=== PATIENT | female | born 1985 | race Caucasian/White ===

== ENCOUNTER 2022-01-23 18:51 | Emergency (ER) | payer MEDICARE, OTHER ==
[~2022-01-23] VITALS: Ht 165.1 cm; Wt 72.0 kg
[2022-01-23 19:51] LABS: BACTERIA,URINE 0 /HPF (0-FEW); RBC,URINE 0 /HPF (0-2)
[2022-01-23 20:10] LABS: BASO % 1 % (0-3); EOS # 0.1 x10^3/uL (0.0-0.7); EOS % 1 % (0-3); HEMATOCRIT 41.4 % (36.0-47.0); HEMOGLOBIN 14.4 g/dL (12.0-15.5); LYMPH # 2.1 x10^3/uL (1.0-4.8); LYMPH % 27 % (24-48); MEAN CORPUSCULAR HEMOGLOBIN 32 pg (25-35); MEAN CORPUSCULAR HGB CONC 35 g/dL (31-37); MEAN CORPUSCULAR VOLUME 94 fL (79-100); MONO # 0.6 x10^3/uL (0.0-1.1); MONO % 8 % (0-9); NEUT # 5.1 x10^3/uL (1.8-7.7); NEUT % 64 % (31-73); PLATELET COUNT 169 x10^3/uL (140-400); RED BLOOD COUNT 4.43 x10^6/uL (3.50-5.40); RED CELL DISTRIBUTION WIDTH 12.6 % (11.5-14.5)
[2022-01-23 20:24] LABS: CALCIUM 8.6 mg/dL (8.5-10.1); CREATININE 0.9 mg/dL (0.6-1.0); GFR 70.5; POTASSIUM 3.3 mmol/L (3.5-5.1)
[2022-01-23 20:34] LABS: ALBUMIN 3.9 g/dL (3.4-5.0); ALBUMIN/GLOBULIN RATIO 1.2 (1.0-1.7); TOTAL BILIRUBIN 0.3 mg/dL (0.2-1.0); TOTAL PROTEIN 7.2 g/dL (6.4-8.2)
--- NOTE | 2022-01-23 20:56 | PHYS DOC ---
Past Medical History Past Surgical History: No Surgical History (DYANA HOWARD CHEMIST INSTRUMENTATION) General Adult EDM: Chief Complaint: VAGINAL BLEEDING HPI: HPI: Patient is a 36 year old female 4 para 0 with 3 miscarriages presenting to the ED today complaining of vaginal bleeding and abdominal cramping in , symptoms began today. Denies any concerns for STDs. Last menstrual cycle she states was January 15, 2022 (DYANA HOWARD CHEMIST INSTRUMENTATION) Review of Systems: Review of Systems: Constitutional: Denies fever or chills. [] Eyes: Denies change in visual acuity. [] HENT: Denies nasal congestion or sore throat. [] Respiratory: Denies cough or shortness of breath. [] Cardiovascular: Denies chest pain or edema. [] GI: Reports spotting, abdominal pain in , denies nausea, vomiting, bloody stools or diarrhea. [] : Denies dysuria. [] Musculoskeletal: Denies back pain or joint pain. [] Integument: Denies rash. [] Neurologic: Denies headache, focal weakness or sensory changes. [] Psychiatric: Denies depression or anxiety. [] (DYANA HOWARD CHEMIST INSTRUMENTATION) Heart Score: C/O Chest Pain: N/A Risk Factors: Risk Factors: DM, Current or recent (<one month) smoker, HTN, HLP, family history of CAD, obesity. Risk Scores: Score 0 - 3: 2.5% MACE over next 6 weeks - Discharge Home Score 4 - 6: 20.3% MACE over next 6 weeks - Admit for Clinical Observation Score 7 - 10: 72.7% MACE over next 6 weeks - Early Invasive Strategies (DYANA HOWARD CHEMIST INSTRUMENTATION) Allergies: Allergies: Allergies Coded Allergies Type Severity Reaction Last Updated Verified adhesive Allergy Unknown 01/23/22 Yes Uncoded Allergies Type Severity Reaction Last Updated Verified Steroids Allergy Unknown 01/23/22 (DYANA HOWARD CHEMIST INSTRUMENTATION) Physical Exam: PE: Constitutional: Well developed, well nourished, no acute distress, non-toxic appearance. []] Abdomen: Bowel sounds normal, soft, no tenderness, no masses, no pulsatile masses. [] Pelvic exam External pelvic appears normal, cervix visualized, closed, no CMT, no adnexal tenderness, trace amount of brownish discharge in the vaginal vault consistent with spotting Skin: Warm, dry, no erythema, no rash. [] Back: No tenderness, no CVA tenderness. [] Extremities: No tenderness, no cyanosis, no clubbing, ROM intact, no edema. [] Neurologic: Alert and oriented X 3, normal motor function, normal sensory fun ction, no focal deficits noted. [] Psychologic: Affect normal, judgement normal, mood normal. [] (LEEDYANA Bledsoe CHEMIST INSTRUMENTATION) Current Patient Data: Labs: Laboratory Tests Test 01/23/22 19:19 01/23/22 19:21 01/23/22 19:35 Urine Collection Type Unknown Urine Color (Auto) Light yellow Urine Turbidity Clear Urine pH (Auto) 6.0 (<5.0-8.0) Urine Specific [place] 1.028 (1.000-1.030) Urine Protein (Auto) Negative mg/dL (Negative) Urine Glucose (Auto)(UA) Negative mg/dL (Negative) Urine Ketones (Auto) Negative mg/dL (Negative) Urine Blood (Auto) Negative (Negative) Urine Nitrite Negative (Negative) Urine Bilirubin (Auto) Negative (Negative) Urine Urobilinogen (Auto) 3 mg/dL (Normal) Urine Leukocyte Esterase (Auto) Negative (Negative) Urine RBC 0 /HPF (0-2) Urine WBC 1-4 /HPF (0-4) Urine Squamous Epithelial Cells Few /LPF Urine Bacteria 0 /HPF (0-FEW) Urine Mucus Slight /LPF POC Urine HCG, Qualitative Hcg positive (Negative) White Blood Count 8.0 x10^3/uL (4.0-11.0) Red Blood Count 4.43 x10^6/uL (3.50-5.40) Hemoglobin 14.4 g/dL (12.0-15.5) Hematocrit 41.4 % (36.0-47.0) Mean Corpuscular Volume 94 fL (79-100) Mean Corpuscular Hemoglobin 32 pg (25-35) Mean Corpuscular Hemoglobin Concent 35 g/dL (31-37) Red Cell Distribution Width 12.6 % (11.5-14.5) Platelet Count 169 x10^3/uL (140-400) Neutrophils (%) (Auto) 64 % (31-73) Lymphocytes (%) (Auto) 27 % (24-48) Monocytes (%) (Auto) 8 % (0-9) Eosinophils (%) (Auto) 1 % (0-3) Basophils (%) (Auto) 1 % (0-3) Neutrophils # (Auto) 5.1 x10^3/uL (1.8-7.7) Lymphocytes # (Auto) 2.1 x10^3/uL (1.0-4.8) Monocytes # (Auto) 0.6 x10^3/uL (0.0-1.1) Eosinophils # (Auto) 0.1 x10^3/uL (0.0-0.7) Basophils # (Auto) 0.0 x10^3/uL (0.0-0.2) Maternal Serum HCG Beta Subunit 148 mIU/mL (0-5) H Sodium Level 138 mmol/L (136-145) Potassium Level 3.3 mmol/L (3.5-5.1) L Chloride Level 102 mmol/L (98-107) Carbon Dioxide Level 29 mmol/L (21-32) Anion Gap 7 (6-14) Blood Urea Nitrogen 16 mg/dL (7-20) Creatinine 0.9 mg/dL (0.6-1.0) Estimated GFR (Cockcroft-Gault) 70.5 BUN/Creatinine Ratio 18 (6-20) Glucose Level 118 mg/dL (70-99) H Calcium Level 8.6 mg/dL (8.5-10.1) Total Bilirubin 0.3 mg/dL (0.2-1.0) Aspartate Amino Transferase (AST) 14 U/L (15-37) L Alanine Aminotransferase (ALT) 15 U/L (14-59) Alkaline Phosphatase 66 U/L (46-116) Total Protein 7.2 g/dL (6.4-8.2) Albumin 3.9 g/dL (3.4-5.0) Albumin/Globulin Ratio 1.2 (1.0-1.7) Laboratory Tests 01/23/22 19:35 Laboratory Tests 01/23/22 19:35 Vital Signs: Vital Signs Date Time Temp Pulse Resp B/P (MAP) Pulse Ox O2 Delivery O2 Flow Rate FiO2 01/23/22 19:01 98.0 87 18 129/76 (93) 100 Room Air 98.0 (DYANA HOWARD APRN) EKG: EKG: [] (DYANA HOWARD APRN) Radiology/Procedures: Radiology/Procedures: []PROCEDURE: OB <14 WKS W/TV EXAM: OBSTETRIC ULTRASOUND, <14 WEEKS. HISTORY: Vaginal bleeding in . COMPARISON: None. FINDINGS: Sonographic evaluation of the pelvis was performed transvaginally. The uterus is anteverted and measures 7.9 x 7.6 x 4.9 cm. No endometrial gestation is yet detectable. The endometrial stripe measures 13 mm. An incidental nabothian cyst at the cervix measures 14 x 8 mm. The right ovary measures 2.7 x 1.6 x 1.6 cm. The left ovary measures 3.0 x 2.2 x 1.1 cm. There is normal Doppler flow bilaterally. There is no adnexal mass. There is no significant free fluid. IMPRESSION: 1. No endometrial gestation is identified. No adnexal mass.Ongoing follow-up of quantitative beta hCG is recommended. Electronically signed by: Juan Allen MD (01/23/2022 8:56 PM) [facility] DICTATED and SIGNED BY: HAYDER ALLEN MD DATE: 01/23/222053 (DYANA HOWARD APRN) Course & Med Decision Making: Course & Med Decision Making Pertinent Labs and Imaging studies reviewed. (See chart for details) This a 36-year-old female patient presenting to the ED today to be evaluated for abdominal cramping and spotting in . She is a 4 para 0 with 3 miscarriages. Positive urine hCG. Beta hCG 143. UA negative for infection. CBC with no acute findings, CMP with nothing really acute. Blood group O-, given RhoGam OB ultrasound no IUP noted. Recommended following up with TRAVEL PTA in the next 2 days for beta-hCG checks. Recommended bedrest/pelvic rest. Provided return precautions. (DYANA HOWARD APRN) Course & Med Decision Making Patients Care and treatment plan provided by ER Nurse Practitioner. I was available for consult. Patient's chart reviewed. (MIKE GOMEZ DO) Ryan Disclaimer: Ryan Disclaimer: This electronic medical record was generated, in whole or in part, using a voice recognition dictation system. (DYANA HOWARD APRN) Departure Departure Impression: Primary Impression: Threatened miscarriage Additional Impression: Encounter for prophylactic administration of RhoGAM Disposition: HOME / SELF CARE / HOMELESS Condition: STABLE Referrals: NON,STAFF (PCP) SAMMI JEFFREY MD follow up in 1-2 days. Patient Instructions: RhoGAM, Threatened Miscarriage Additional Instructions: You were evaluated in the emergency room, your urine test is positive, your beta-hCG is 143. This is an early . Ultrasound could not identify anything in the uterus because this is a very early . We highly recommend you follow-up with an TRAVEL PTA. We provided you a name of one. Call the office tomorrow and set up a follow-up appointment. Maintain bedrest, no sex, no strenuous activities until seen by OBGYN. Come back to the ED at any point symptoms worsen. You received RhoGam in the ED. DYANA HOWARD APRN Jan 23, 2022 20:56 MIKE GOMEZ I DO Jan 24, 2022 19:07
--- NOTE | 2022-01-23 20:59 | RAD ---
EXAM: OBSTETRIC ULTRASOUND, <14 WEEKS. HISTORY: Vaginal bleeding in . COMPARISON: None. FINDINGS: Sonographic evaluation of the pelvis was performed transvaginally. The uterus is anteverted and measures 7.9 x 7.6 x 4.9 cm. No endometrial gestation is yet detectable. The endometrial stripe measures 13 mm. An incidental nabothian cyst at the cervix measures 14 x 8 mm. The right ovary measures 2.7 x 1.6 x 1.6 cm. The left ovary measures 3.0 x 2.2 x 1.1 cm. There is nor mal Doppler flow bilaterally. There is no adnexal mass. There is no significant free fluid. IMPRESSION: 1. No endometrial gestation is identified. No adnexal mass.Ongoing follow-up of quantitative beta hCG is recommended. Electronically signed by: Juan Allen MD (01/23/2022 8:56 PM) [facility]
[2022-01-23 22:33] VITALS: BP 114/75
[2022-01-23 23:29] VITALS: BP 120/78
[2022-01-25 20:18] LABS: GC PROBE Negative (Negative)
== END 2022-01-23 23:32 | disposition home or self-care (01) ==
LOC: ER 18:51
DX: O20.0 Threatened abortion (principal); Z3A.00 Weeks of gestation of pregnancy not specified; Z29.13 Encounter for prophylactic Rho(D) immune globulin
CPT/HCPCS: 36415; 76801; 76817; 80053; 81001; 81025; 84702; 85025; 86850; 86900; 86901; 87491; 87591; 99285; J2790; Q0111; 96372

== ENCOUNTER → 2022-01-27 | Outpatient (CLI) | payer MEDICARE, OTHER ==
[2022-01-23 23:29] VITALS: BP 120/78
== END ==
LOC: LAB 16:13
PROVIDERS: ATTEND Registered Nurse
DX: Z34.91 Encounter for supervision of normal pregnancy, unspecified, first trimester (principal)
CPT/HCPCS: 36415; 84702

== ENCOUNTER 2022-03-04 06:06 | Day surgery (SDC) | payer MEDICARE, OTHER ==
[~2022-03-04] VITALS: Ht 157.5 cm; Wt 68.1 kg
[~2022-03-04 06:06] MED LIST: HYDROmorphone 2 MG/ML INJ. IVP PRN; IV RINGERS,LACTATED 1000ML 1,000 ML IV SCH; MORPHINE SULFATE 2 MG/ML INJ. IVP PRN; PROCHLORPERAZINE 10 MG/2 ML VIAL. IVP PRN; fentaNYL PF VIAL 100 MCG/2 ML VIAL IVP PRN
[2022-03-04] MEDS ORDERED: CELE100C PO (06:42)
[2022-03-04] MEDS ORDERED: CITA10TA5 PO (06:42)
[2022-03-04 06:44] VITALS: BP 127/77
[2022-03-04 06:55] LABS: BASO # 0.1 x10^3/uL (0.0-0.2); BASO % 1 % (0-3); EOS # 0.2 x10^3/uL (0.0-0.7); EOS % 4 % (0-3); HEMATOCRIT 40.5 % (36.0-47.0); LYMPH # 2.9 x10^3/uL (1.0-4.8); LYMPH % 48 % (24-48); MEAN CORPUSCULAR HEMOGLOBIN 32 pg (25-35); MEAN CORPUSCULAR HGB CONC 35 g/dL (31-37); MEAN CORPUSCULAR VOLUME 93 fL (79-100); MONO # 0.5 x10^3/uL (0.0-1.1); MONO % 9 % (0-9); NEUT # 2.4 x10^3/uL (1.8-7.7); NEUT % 39 % (31-73); PLATELET COUNT 174 x10^3/uL (140-400); RED BLOOD COUNT 4.33 x10^6/uL (3.50-5.40); RED CELL DISTRIBUTION WIDTH 12.8 % (11.5-14.5); WHITE BLOOD COUNT 6.2 x10^3/uL (4.0-11.0)
[2022-03-04] MEDS ORDERED: fentaNYL PF VIAL 100 MCG/2 ML VIAL ONE ×2 (07:35→09:47)
[2022-03-04] MEDS ORDERED: PROPOFOL 10 MG/ML (20ML) VIAL. IV ONE (07:36)
[2022-03-04] MEDS ORDERED: SEVOFLURANE 61 TO 120 MINUTES. IH ONE (07:36)
[2022-03-04] MEDS ORDERED: ONDANSETRON PF 4 MG/2 ML VIAL. ONE (07:36)
[2022-03-04] MEDS ORDERED: KETOROLAC 30 MG/ML VIAL. ONE (07:36)
[2022-03-04] MEDS ORDERED: LIDOCAINE 2% PF 5 ML VIAL. ONE (07:36)
[2022-03-04] MEDS ORDERED: ROCURONIUM 50 MG/5 ML VIAL. ONE (07:37)
--- NOTE | 2022-03-04 07:44 | PDOC1 ---
GUITAR TEACHER H&P Date of Admission: Date of Admission: History of Present Illness: 36y presents for scheduled surgery. The pt has had recurrent loss. She recently experienced a loss. On 01/23/22 she presented to the ER with a positive test. Her quant at the time returned at 148. An u/s on that date revealed no intrauterine gestation. When she returned to the office on 01/27/22, a repeat quant was ordered and found to be 52. She has had similar experience with her other pregnancies. She can't recall a where a pole has been seen. Her recurrent loss has lead to a great deal of emotional pain. She has an adopted son and does not feel she can go through this experience again. She would like a BTL. PMH: Varicose veins, PCOS, Possible endometriosis. PSH: Ovarian cyst resection 2017. Meds: CITALOPRAM 20MG, Acetaminophen-Hydrocodone Bitartrate 325 mg-5 mg All: steroid shots: stomach upset - Side Effects. OBHx: SAB x 5 Director Game: LMP 01/23/22 Irregular cycles SH: no tob, no EtOH FH: Sister-migraines, bleeding tendency Medications: Meds: Current Medications Medications (Trade) Dose Ordered Sig/Jacinta Route PRN Reason Start Time Stop Time Status Last Admin Dose Admin Ringer's Solution 1,000 ml @ 30 mls/hr Q24H IV 03/04/22 06:00 03/04/22 17:59 03/04/22 06:51 Allergies: Coded Allergies: adhesive (Verified Allergy, Intermediate, 03/04/22) latex (Verified Adverse Reaction, Intermediate, Rash, 03/04/22) Uncoded Allergies: Steroids (Allergy, Unknown, 01/23/22) Physical Exam: Vital Signs: Vital Signs Date Time Temp Pulse Resp B/P (MAP) Pulse Ox O2 Delivery O2 Flow Rate FiO2 03/04/22 06:47 98.4 75 14 127/77 99 Room Air 98.4 PE: GENERAL: No apparent distress. Alert and oriented. HEENT: Head normocephalic, atraumatic. NECK: Supple LUNGS: Clear to auscultation. HEART: RRR, S1, S2 present, pulses intact ABDOMEN: Soft, positive bowel sounds. EXTREMITIES: No cyanosis or edema. NEUROLOGIC: Normal speech, normal tone PSYCHIATRIC: Normal affect, normal mood. SKIN: No ulceration. Labs: Laboratory Tests Test 03/04/22 06:30 03/04/22 06:39 03/04/22 06:40 POC SARS CoV-2 Antigen Negative (NEGATIVE) POC Urine HCG, Qualitative Hcg negative (Negative) White Blood Count 6.2 x10^3/uL (4.0-11.0) Red Blood Count 4.33 x10^6/uL (3.50-5.40) Hemoglobin 14.0 g/dL (12.0-15.5) Hematocrit 40.5 % (36.0-47.0) Mean Corpuscular Volume 93 fL (79-100) Mean Corpuscular Hemoglobin 32 pg (25-35) Mean Corpuscular Hemoglobin Concent 35 g/dL (31-37) Red Cell Distribution Width 12.8 % (11.5-14.5) Platelet Count 174 x10^3/uL (140-400) Neutrophils (%) (Auto) 39 % (31-73) Lymphocytes (%) (Auto) 48 % (24-48) Monocytes (%) (Auto) 9 % (0-9) Eosinophils (%) (Auto) 4 % (0-3) H Basophils (%) (Auto) 1 % (0-3) Neutrophils # (Auto) 2.4 x10^3/uL (1.8-7.7) Lymphocytes # (Auto) 2.9 x10^3/uL (1.0-4.8) Monocytes # (Auto) 0.5 x10^3/uL (0.0-1.1) Eosinophils # (Auto) 0.2 x10^3/uL (0.0-0.7) Basophils # (Auto) 0.1 x10^3/uL (0.0-0.2) Laboratory Tests 03/04/22 06:40 Laboratory Tests 03/04/22 06:40 Assessment & Plan: A/P 36y DPS 1.) DPS - [facility] consent signed 01/28/22 2.) Recurrent loss 3.) Anxiety SAMMI JEFFREY MD March 04, 2022 07:44
[2022-03-04] MEDS ORDERED: PHENYLEPHRINE 10 MG/ML VIAL. ONE (08:12)
[2022-03-04] MEDS ORDERED: GLYCOPYRROLATE 1 MG/5 ML VIAL. ONE (08:12)
[2022-03-04] MEDS ORDERED: NEOSTIGMINE METHYLSULFATE 5 MG/5 ML SYRINGE. ONE (08:13)
[2022-03-04] MEDS ORDERED: DOCU-109 PO (09:17)
[2022-03-04] MEDS ORDERED: IBUP-1060 PO (09:17)
[2022-03-04] MEDS ORDERED: OXYC1TAB15 PO (09:18)
--- NOTE | 2022-03-04 09:27 | PDOC4 ---
OPERATIVE NOTE: PreOp Dx: 1.) DPS, 2.) Recurrent loss, 3.) Anxiety Post Op Dx: same Procedure: L/S bilateral salpingectomy Surgeon: Faviola Jeffrey Anesthesia: GETA EBL: 50 Fluids: 700 cc UOP: 150 cc Complications: none Finding: paratubal cyst on left tube, nml right tube and and bilateral ovaries Path: bilateral tubes SAMMI JEFFREY MD March 04, 2022 09:27
[2022-03-04] MEDS: fentaNYL PF VIAL 100 MCG/2 ML VIAL IVP PRN ×2 (09:55→10:33)
[2022-03-04] MEDS ORDERED: KETOROLAC 30 MG/ML VIAL. IVP ONE (10:00)
[2022-03-04] MEDS ORDERED: oxyCODONE/APAP 5/325 1 TAB TABLET PO ONE (10:00)
[2022-03-04 11:12] VITALS: BP 100/60
--- NOTE | 2022-03-04 12:22 | OP ---
DATE OF SURGERY: 03/04/2022 PREOPERATIVE DIAGNOSES: 1. Desires permanent sterilization. 2. Recurrent loss. 3. Anxiety. POSTOPERATIVE DIAGNOSES: 1. Desires permanent sterilization. 2. Recurrent loss. 3. Anxiety. PROCEDURE: Laparoscopic bilateral salpingectomy. SURGEON: Savage Marie MD ANESTHESIA: General endotracheal intubation. ESTIMATED BLOOD LOSS: 50 mL FLUIDS: 700 mL URINE OUTPUT: 150 mL COMPLICATIONS: None. FINDINGS: Paratubal cyst on left tube, normal right tube and bilateral ovaries. PATHOLOGY: Bilateral tubes. DESCRIPTION OF PROCEDURE: The patient was taken to the operating room where general endotracheal intubation was obtained without difficulty. The patient was prepped and draped in normal sterile fashion. A sponge stick was placed in the patient's vagina. Attention was then turned to the abdomen where a 5 mm skin incision was made in her infraumbilical fold. A Veress needle was introduced into the abdomen where the abdomen was insufflated to 15 mmHg. Once it had been accomplished, the Veress needle was removed and a 5 mm trocar was placed directly into the abdomen. Intraabdominal placement was confirmed with laparoscope. Visualization of the pelvis revealed relatively normal anatomy. There were a couple of paratubal cysts on the left tube. At that point, a second trocar was then placed on the left approximately two-thirds between the ischial spine and the umbilicus first by making a 5 mm skin incision and then placing a 5 mm trocar under direct visualization of the laparoscope. This was then performed on the right side where a 5 mm skin incision was placed followed by placing the 5 mm trocar under direct visualization of the laparoscope. At that point, the left tube was followed out to the fimbria and then grasped. The Harmonic scalpel was then used to separate the tube from the ovary including the tubal cyst until the uterus was reached. At that point, the tube was from the uterus. This tube was then brought through the trocar and sent to pathology. Due to the paratubal cyst, it came off in pieces because it was at times too large to pass through the 5 mm trocar, but all portions of the tube were able to be taken out and sent to pathology. At that point, attention was then turned to the right tube, which was again followed out to the fimbria. The tube was then grasped and mesosalpinx was cut through with the Harmonic scalpel to separate the tube from the ovary. Once the level of the uterus was reached, the tube was ligated off. This was then brought through the trocar without difficulty, intact. At that point, examination of the left ovary revealed a portion of the tube to still be on their which seemed to be bleeding a little bit. This portion that was remained on the left ovary was and also sent with the rest to pathology. At that point, good hemostasis was noted. At that point, the suction dye colorist formulator was used to clear all clots and debris. Again, good hemostasis was noted. At that point, all the instruments were removed. The abdomen was desufflated. The port sites were then closed with 3-0 Monocryl in a subcuticular manner. Sponges, laps and needles were correct x 2. The patient tolerated the procedure well and was taken to recovery room in stable condition. PILY DR: Corry TID: [id number]
--- NOTE | 2022-03-06 09:10 | PATHOLOGY ---
[facility] Accession Number: [id number] . 01 Material submitted: . fallopian tube - RIGHT AND LEFT FALLOPIAN TUBES . 01 Clinical history: . DESIRED STERILIZATION . 02 Diagnosis: Fallopian tubes (2), laparoscopic bilateral salpingectomy: - Segments (2) of fallopian tube confirmed. . (JPM:mm; 03/05/2022) [facility] 03/06/2022 0858 Local . 02 Electronically signed: . Alvin Sam MD, Pathologist NPI- [id number] . 01 Gross description: . Fixative: Formalin Labeled: R and L fallopian tubes Fallopian tube #1 Measurements: 5.7 cm in length by 0.5-0.7 cm in diameter (upon reconstruction; received in two pieces) Fimbriated: Yes External surface: Grossly unremarkable Cut Surface: Pinpoint to patent lumen Fallopian tube #2 Measurements: 5.3 cm in length by 0.4-0.6 cm in diameter Fimbriated: Yes External surface: Grossly unremarkable Cut Surface: Pinpoint to patent lumen . 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 02 Pathologist provided ICD-10: Z30.2 . 02 CPT . 394974 Specimen Comment: A courtesy copy of this report has been sent to [phone] Specimen Comment: Report sent to Specimen Comment: A duplicate report has been generated due to demographic updates. Performed at: [address], [place], [place] [id number] MD Corky Vargas MD Phone: [phone] Performed at: 02 [facility] [address] [place], [place] [id number] MD Alvin Sam MD Phone: [phone]
== END 2022-03-04 11:30 | disposition home or self-care (01) ==
LOC: SURG 06:06
PROVIDERS: ATTEND Obstetrics & Gynecology
DX: Z30.2 Encounter for sterilization (principal); N96 Recurrent pregnancy loss; F41.9 Anxiety disorder, unspecified; G43.909 Migraine, unspecified, not intractable, without status migrainosus; Z79.899 Other long term (current) drug therapy; Z98.890 Other specified postprocedural states; Z91.040 Latex allergy status; Z88.8 Allergy status to other drugs, medicaments and biological substances
CPT/HCPCS: 31500; 36415; 58661; 81025; 85025; 86850; 86900; 86901; 88302; A4344; A4364; A4930; A6219; J1885; J2405; J2704; J2710; J3010; J3490; A4452; A4657; J2370